=== PATIENT | male | born 1990 | race Caucasian/White ===

== ENCOUNTER 2022-01-26 20:35 | Emergency (ER) | payer BC ==
[2022-01-26] MEDS ORDERED: Iopamidol 612 MG/ML 100 ML Bottle IVPUSH ONE (21:38)
[2022-01-26 21:50] LABS: ANION GAP 11.1 mEq/L (7-13); CHLORIDE,CL 100 mmol/L (98-107); SODIUM,NA 137 mmol/L (136-145)
[2022-01-26 21:52] LABS: ESTIMATED GFR 81 mL/min (>=60)
[2022-01-26] MEDS ORDERED: Iopamidol 755 Mg/ML 100 ML Bottle IVPUSH ONE (22:51)
[2022-01-27] MEDS ORDERED: Rivaroxaban 10 MG Tab PO ONE ×2 (00:40→00:55)
== END 2022-01-27 01:08 | disposition home or self-care (01) ==
LOC: DL.ED 20:35
DX: I26.93 Single subsegmental thrombotic pulmonary embolism without acute cor pulmonale (principal); Z79.899 Other long term (current) drug therapy; Z20.822 Contact with and (suspected) exposure to COVID-19
CPT/HCPCS: 36415; 71260; 74177; 80053; 80307; 82150; 83605; 83690; 83735; 85025; 85379; 87635; 99284; A9270; Q9967; U0002